=== PATIENT | male | born 2000 | race Caucasian/White ===

== ENCOUNTER 2021-11-18 12:43 | Outpatient (CLI) | payer BC, SELFPAY ==
--- NOTE | ~2021-11-18 | CT_ITS ---
EXAMINATION: CT chest abdomen pelvis w con DATE: 11/18/2021 13:21 INDICATION: Neoplasm of uncertain behavior of testis. TECHNIQUE: Computed tomography (CT) of the chest, abdomen, and pelvis was performed with 100 mL Omnip aque 300 intravenous contrast. Automated exposure control and iterative reconstruction technique were employed. The dose-length product was 1038.33 mGy-cm. COMPARISON: None FINDINGS: CHEST CT: A calcified left lung nodule is consistent with old granulomatous disease. No pleural effusion. The h eart size is normal. No pericardial effusion. ABDOMEN/PELVIS CT: There is a 7 mm cyst in the liver. The gallbladder, spleen, pancreas, adrenal glands, and kidneys are normal. There is enlargement of right testis. There are no dilated loops of bowel. The appendix is n ormal. There are no pathologically enlarged lymph nodes. There is no free intraperitoneal fluid. The bones are unremarkable. IMPRESSION: 1. Enlargement of right testis suspicious for neoplasm. Correlate with ultrasound. 2. No evidence of metastatic disease. Reviewed, dictated and finalized at location B. IMPRESSION: 1. Enlargement of right testis suspicious for neoplasm. Correlate with ultrasou nd. 2. No evidence of metastatic disease.
== END 2021-11-18 12:44 | disposition home or self-care (01) ==
PROVIDERS: PCP Internal Medicine; Visit Provider Urology
DX: C62.91 Malignant neoplasm of right testis, unspecified whether descended or undescended (principal)
CPT/HCPCS: 71260; 74177; Q9967

== ENCOUNTER 2021-11-20 04:30 | Day surgery (SDC) | payer BC, SELFPAY ==
[2021-11-18 17:48] VITALS: BMI 27.0
--- NOTE | 2021-11-18 17:54 | PC.NURSE ---
Report to the Outpatient Waiting Room, entrance under the green pavilion located off [facility], at time ___1200____ on date ___[id number]____. OR Time: ___1400 . - You and your visitor will be asked a series of questions to screen for COVID 19 for your protection. - Only one visitor is allowed at this time. - The patient visitor is requested to leave or wait in car when not with patient. - A mask is required within the hospital. Patients may have clear liquids (water, carbonated beverages, clear teas, apple juice) until 3 hours prior to surgery with a maximum of 20 ounces. - No food from midnight until time of surgery - Infants may have breast milk until 4 hours before surgery, infant formula 6 hours prior to surgery. - Children will be allowed to drink immediately following surgery. If applicable, please bring a bottle or sippy cup to assist with drinking. Juice, water, soda, and popsicles are readily available. For infants on formula, please bring formula the day of surgery. Pacifiers are allowed. Take the following medications with a SIP of water the morning of surgery: Medications to discontinue per physician Date to take last dose Please no make-up, nail belarusian, hairspray, perfume, deodorant, or body powder the day of surgery. No jewelry (including any body piercings) or valuables the day of surgery, leave them at home. Please take a shower or bath the night before, or the morning of, surgery with an antibacterial soap. Wear comfortable, loose fitting clothing. Children are encouraged to wear pajamas. - Jewelry must be removed prior to entering the operating room. Rings and piercings that are not removed may be cut off. - The hospital will not accept responsibility for valuables. - Please leave all valuables, including medications, at home the day of surgery. If you are going home after surgery, a licensed passenger coach driver must drive you home. - NO public transportation without another adult. - We recommend that an adult stay with you for 24 hours following discharge. - We also recommend that you do not drive, make important decision, drink alcoholic beverages, or take any drugs that were not prescribed by your health care provider for at least 24 hours after your discharge time. For Pediatric surgeries, we recommend two adults accompany the child home (only one inside the building at this time). Follow any additional instructions given to you from your surgeon. If you or anyone in your household have experienced Covid symptoms in the past week, please notify your surgeon or the nurse liaison at the phone number below for possible testing. Telephone instructions given to ____patient and asked if any additional questions and then verbalized understanding. Patient advised to call surgeon office or pre surgery nurse liaison [phone] if any additional questions.
--- NOTE | 2021-11-19 08:24 | P.PNAN_ITS ---
Anes - Initial Pre Proc Eval Procedure: Operation Date: 11/20/21 14:00 Proposed Procedures p Right Radical Orchiectomy, Inguinal Approach - Ciro Clark MD Date/Time: 11/19/21 08:24 Surgeon: Ciro Clark MD Pre Op Diagnosis: neoplasm of testes Patient Data Age: 21 Gender: M Height: 1.8 m Weight: 88 kg Allergies Allergy/AdvReac Type Severity Reaction Status Date / Time No Known Allergies Allergy Verified 11/20/21 12:14 Home Medications Medication Instructions Recorded Confirmed Type No Home Medications 11/18/21 11/20/21 History Patient hx anesthesia problems: none Family hx anesthesia problems: none Results Review: All pre-operative results and documents have been reviewed as part of the pre- operative evaluation. [facility] Past Medical History Medical History (Updated 11/20/21 @ 13:20 by Brent Colindres MD) Testicle cancer Social History Social History Smoking status: Never smoker Second hand tobacco smoke exposure: No Alcohol intake: current Drinks per week: 5 Substance use: never Living arrangements: with family Anes - Eval Final PreProcedure Day of Procedure 11/19/21 08:24 Patient weight: overweight Heart: regular rate and rhythm Lungs: clear to auscultation Airway: Mallampati scale class II Neurological: alert and oriented Last oral intake: >/= 8 hours ASA classification: II Emergent: no Anesthetic plan: proceed Anesthesia type and monitoring: general LMA and standard monitoring Results Review: All pre-operative results and documents have been reviewed as part of the pre- operative evaluation. Informed Consent: The patient's anesthetic plan and its attendant risks and benefits were discussed with the patient/family/POA. Questions were solicited and answers provided to the satisfaction of the patient/family/POA.
[2021-11-20] VITALS (11 sets, daily range): BP systolic 111–157; BP diastolic 47–85; PULSE 69–83; RESP 12–18; TEMP 36.9–37; O2SAT 95–100
--- NOTE | 2021-11-20 12:16 | WPDHPUPDATE1 ---
History and Physical Update Update Date/Time: 11/20/21 12:16 History and Physical has been reviewed, including an updated exam of the patient. There are NO changes in the patient's condition. Risks, benefits, and alternatives have been discussed and questions answered. Patient agrees to proceed with procedure.
[2021-11-20] MEDS: LACTATED RINGERS 1,000 ML 30 ML IV CONT ×2 (12:40→15:12)
[2021-11-20] MEDS: ceFAZolin 2 GM/D5W 50 ML 2 GM/50 ML BAG IVPB (13:52)
[2021-11-20] MEDS: BUPIVACAINE HCL 0.5% PF 30 ML VIAL INFILTRATE (14:14)
--- NOTE | 2021-11-20 15:04 | W.PM.PROC2 ---
Procedure Note - Detailed Date of Procedure 11/20/21 Pre-op Diagnosis Right testicular mass Post-op Diagnosis Same Procedure Performed Right radical orchiectomy Surgeon Ciro Clark MD Anesthesia General Description of Procedure Patient is taken the operative suite correctly identified. Once anesthesia was obtained he was prepped and draped usual sterile fashion. A right inguinal incision was made carried through Francia's fascia. The oblique fascia was then incised. The ilioinguinal nerve was seen immediately. We dissected this free and spared. The cord was then isolated. Quarter-inch [place] drain was placed around the cord in the blood supply to it was essentially ligated. The cord was then dissected down into the scrotal area. The mass was brought out through the inguinal ring. The spermatic cord was then taken at the internal ring. We suture ligated the cord using 0 Prolene. We left the tail and long. This then retracted into the abdominal cavity. The wound was copiously irrigated. Fascia was then closed using 2-0 Vicryl in interrupted fashion of 8 closure. Francia's fascia was closed using 3-0 Vicryl. The skin was anesthetized. Skin was closed in a subcuticular fashion using Monocryl. We anesthetized the skin with anesthetic. All lap count needle counts sponge counts were correct. Patient tolerated procedure well without any complications was taken recovery stable condition. He will call for path results in a week if he has not heard from us. Estimated Blood Loss 5 Drains No Packing No Pathology Yes Complications No immediate complications Condition Stable Disposition PACU
[2021-11-20] MEDS: fentaNYL CITRATE INJ (*CRX) 100 MCG/2 ML VIAL 25 MCG IV PUSH ×8 (15:38→16:11)
[2021-11-20] MEDS: oxyCODONE HCL (*CRX) 5 MG TAB IR PO (16:26)
--- NOTE | 2021-11-20 16:48 | SUR.PHASEII ---
1060- Patient and father, Basim requesting additional pain medication. Patient rating pain 6 on numeric scale to surgical site after 200MCG of Fentanyl given and 5MG PO oxycodone. Per Dr. Romo can place orders and give 15MG IVP Toradol once.
[2021-11-20] MEDS: KETOROLAC 15 MG/ML VIAL (*BKC) IV PUSH (16:55)
== END 2021-11-20 18:10 | disposition home or self-care (01) ==
PROVIDERS: PCP Internal Medicine; Visit Provider Urology
PROC: (CPT 54520; principal; 2021-11-20 14:00)
DX: C62.11 Malignant neoplasm of descended right testis (principal); C77.4 Secondary and unspecified malignant neoplasm of inguinal and lower limb lymph nodes; D07.69 Carcinoma in situ of other male genital organs
CPT/HCPCS: 54530; 88305; 88342; A9270; J0690; J1100; J1885; J2250; J2405; J2704; J3010; J7120